=== PATIENT | female | born 1990 | race Caucasian/White ===

== ENCOUNTER 2019-07-16 11:24 | Emergency (ER) | payer OTHER | END 2019-07-16 12:20 | disposition home or self-care (01) | LOC: MADERS 11:24 | DX: J18.9 Pneumonia, unspecified organism (principal); E66.01 Morbid (severe) obesity due to excess calories; G47.30 Sleep apnea, unspecified; E03.9 Hypothyroidism, unspecified; K21.9 Gastro-esophageal reflux disease without esophagitis; E78.5 Hyperlipidemia, unspecified; I10 Essential (primary) hypertension; F31.9 Bipolar disorder, unspecified; F41.9 Anxiety disorder, unspecified; F20.0 Paranoid schizophrenia; Z79.899 Other long term (current) drug therapy | CPT/HCPCS: 99283 ==